=== PATIENT | male | born 1980 | race Caucasian/White ===

== ENCOUNTER 2020-03-26 08:24 | Emergency (ER) | payer SELFPAY ==
[2020-03-26 08:50] VITALS: BP 125/80; PULSE 71
--- NOTE | 2020-03-26 10:02 | CR ---
Chest: 2 views of the chest were obtained. Comparison: No prior chest imaging is available. Heart size and mediastinum are normal. Lungs are clear with no acute parenchymal change. Bony structures are unremarkable. Impression: 1. Nothing acute is seen on 2 view chest x-ray. Diagnostic code #1 This report was dictated in MDT
--- NOTE | 2020-03-26 10:22 | EDM.PDOC ---
ED HPI GENERAL MEDICAL PROBLEM - General Chief Complaint: ENT Problem Stated Complaint: SEED STUCK IN THROAT Time Seen by Provider: 03/26/20 08:49 Source of Information: Reports: Patient History Limitations: Reports: No Limitations - History of Present Illness INITIAL COMMENTS - FREE TEXT/NARRATIVE: This is a 39-year-old male with no past medical history presenting with throat d iscomfort, chronic cough and shortness of breath and chest pain, and bilateral ear discomfort. Patient states that he was eating some seeds about a week ago when he thinks that he got one stuck in his throat. He complains of a persistent foreign body sensation in his esophagus. He has been able to eat and drink without any difficulty for the past few days. Denies any fever, nausea, vomiting. Also reports a 2 to 3-month history of substernal chest discomfort, described as "burning". Reports intermittent coughing and some shortness of breath. There does not seem to be any exertional component to the symptoms. He did take some omeprazole which did not seem to help. Symptoms have not been acutely worse over the past 3 days. Denies any leg swelling, history of VTE, hemoptysis, recent surgery or immobilization or long travel, history of cancer. Denies any chest discomfort or shortness of breath this moment. Also reports a 1 day history of bilateral ear fullness without drainage or pain. Throat Pain Score (Numeric/FACES): 4 - Related Data Allergies Allergy/AdvReac Type Severity Reaction Status Date / Time No Known Allergies Allergy Verified 03/26/20 08:50 Home Meds: Home Meds . [No Known Home Meds] 03/26/20 [History] Past Medical History - Past Health History Medical/Surgical History: Denies Medical/Surgical History Social & Family History - Family History Family Medical History: Noncontributory - Tobacco Use Smoking Status *Q: Never Smoker - Caffeine Use Caffeine Use: Reports: Soda - Alcohol Use Days Per Week of Alcohol Use: 4 Number of Drinks Per Day: 3 Total Drinks Per Week: 12 - Recreational Drug Use Recreational Drug Use: No ED ROS ENT - Review of Systems Review Of Systems: See Below Constitutional: Denies: Fever, Chills HEENT: Reports: Throat Pain. Denies: Ear Discharge, Ear Pain, Throat Swelling Respiratory: Reports: Shortness of Breath, Cough. Denies: Pleuritic Chest Pain, Sputum, Hemoptysis Cardiovascular: Reports: Chest Pain. Denies: Dyspnea on Exertion, Edema, Syncope Endocrine: Denies: Fatigue GI/Abdominal: Denies: Abdominal Pain, Bloody Stool, Diarrhea, Nausea, Vomiting : Denies: Discharge, Dysuria, Urgency Musculoskeletal: Denies: Neck Pain Skin: Denies: Rash Neurological: Denies: Headache Psychiatric: Reports: No Symptoms Hematologic/Lymphatic: Reports: No Symptoms Immunologic: Reports: No Symptoms ED EXAM, ENT - Physical Exam Exam: See Below Text/Narrative:: Vital signs reviewed. Nursing notes reviewed. Constitutional: Awake, alert, non-distressed. Head: Normocephalic, atraumatic. Eyes: EOMI, conjunctiva normal, no discharge, no scleral icterus. Ears, Nose, Throat: External ears and nose normal, moist oral mucosa. Oropharynx unremarkable. TMs clear bilaterally. Neck: Supple, full range of motion. Cardiovascular: 2+ radial pulse, capillary refill less than 2 seconds. RRR, no M/R/G Pulmonary: normal work of breathing, no accessory muscle use. CTA BL Abdomen/GI: Soft, nontender, nondistended, no guarding or rigidity, no masses. Musculoskeletal: No deformities. Integumentary: Appropriate color for ethnicity, warm, dry, no pallor or jaundice, no rash. Neurologic: Alert, answering questions appropriately, normal speech, no facial droop, moving all extremities well. Psychiatric: Appropriate mood and affect, normal thought process. EKG INTERPRETATION EKG Interpretation Comments: 12-Lead ECG Interpretation Acquired: 9:00 AM Rhythm: Sinus rhythm Rate: 71 bpm [place]: Normal Intervals: Normal Ectopy: None Ischemic Changes: None apparent RV Strain: No obvious RV strain pattern. ST Segments/T-Waves: No notable changes Interpretation: Unremarkable Course - Vital Signs Text/Narrative:: Patient hemodynamically stable, afebrile, well-appearing, looks nontoxic. Differential diagnosis includes but is not limited to: Esophageal foreign body, throat irritation, esophageal rupture/perforation, PE, acute coronary syndrome, unstable angina, GERD, pneumonia, atypical chest pain, congestive heart failure, otitis media, otitis externa, nonspecific otalgia, etc. I offered viscous lidocaine for his throat discomfort, which the patient refused. Given the patient has been eating and drinking without difficulty for days, an esophageal foreign body is very unlikely. His neck examination is supple and he is handling secretions without difficulty. No evidence of free air on chest x-rays to suggest an esophageal perforation, no fever, patient looks nontoxic. No historical risk factors for pulmonary embolism and chronicity of stuttering chest discomfort and shortness of breath makes this unlikely. Patient is not hypoxic or tachycardic and has no leg swelling. Chest x-rays are normal. Twelve-lead EKG looks nonischemic. No evidence of congestive heart failure on examination such as rales or lower extremity edema. Labs reassuring, negative troponin. No risk factors for pulmonary embolism, no clinical evidence of congestive heart failure. Lungs are clear to auscultation. Not hypoxic, afebrile, well-appearing. Plan: Patient is stable to discharge home with outpatient primary care follow- up. I offered to prescribe viscous lidocaine for his throat discomfort, which the patient declined. Plan for [id number] treatment with sore throat lozenges, salt water gargles, Tylenol and ibuprofen for any chest pain. Strict emergency department return precautions were provided, patient indicated understanding. All questions were answered prior to departure. Discharged in good condition. Last Recorded V/S: Last Vital Signs Temp 36.4 C 03/26/20 08:47 Pulse 71 03/26/20 08:47 Resp 18 03/26/20 08:47 BP 125/80 03/26/20 08:47 Pulse Ox 96 03/26/20 08:47 - Orders/Labs/Meds Orders: Active Orders 24 hr Category Date Time Status EKG 12 Lead [EKG Documentation Completion] [RC] ROUTINE Care 03/26/20 09:20 Active Labs: Laboratory Tests 03/26/20 03/26/20 Range/Units 10:22 10:22 WBC 5.34 (4.0-11.0) K/uL RBC 4.41 L (4.50-5.90) M/uL Hgb 13.9 (13.0-17.0) g/dL Hct 39.8 (38.0-50.0) % MCV 90.2 (80.0-98.0) fL MCH 31.5 (27.0-32.0) pg MCHC 34.9 (31.0-37.0) g/dL RDW Std Deviation 43.8 (28.0-62.0) fl RDW Coeff of [place]cel[place] 13 (11.0-15.0) % Plt Count 225 (150-400) K/uL MPV 9.50 (7.40-12.00) fL Neut % (Auto) 61.0 (48.0-80.0) % Lymph % (Auto) 29.8 (16.0-40.0) % [place] % (Auto) 6.7 (0.0-15.0) % Eos % (Auto) 2.1 (0.0-7.0) % Baso % (Auto) 0.4 (0.0-1.5) % Neut # (Auto) 3.3 (1.4-5.7) K/uL Lymph # (Auto) 1.6 (0.6-2.4) K/uL [place] # (Auto) 0.4 (0.0-0.8) K/uL Eos # (Auto) 0.1 (0.0-0.7) K/uL Baso # (Auto) 0.0 (0.0-0.1) K/uL Nucleated RBC % 0.0 /100WBC Nucleated RBCs # 0 K/uL Sodium 140 (136-148) mmol/L Potassium 4.1 (3.5-5.1) mmol/L Chloride 105 (98-107) mmol/L Carbon Dioxide 25.5 (21.0-32.0) mmol/L BUN 12 (7.0-18.0) mg/dL Creatinine 0.8 (0.8-1.3) mg/dL Est Cr Clr Drug Dosing 144.14 mL/min Estimated GFR (MDRD) > 60.0 ml/min Glucose 105 (74-106) mg/dL Calcium 8.6 (8.5-10.1) mg/dL Troponin I < 0.050 (0.000-0.056) ng/mL Departure - Departure Time of Disposition: 10:54 Disposition: Home, Self-Care 01 Condition: Good Clinical Impression: Atypical chest pain, Chronic cough, Throat discomfort Dyspnea Qualifiers: Dyspnea type: unspecified Qualified Code(s): R06.00 - Dyspnea, unspecified - Discharge Information *PRESCRIPTION DRUG MONITORING PROGRAM REVIEWED*: Not Applicable *COPY OF PRESCRIPTION DRUG MONITORING REPORT IN PATIENT JORDAN: Not Applicable Instructions: Nonspecific Chest Pain, Adult, [id number], Cough, Adult Referrals: Myla Jane DO [Primary Care Provider] - 1 Week (For follow-up of symptoms.) Forms: ED Department Discharge Additional Instructions: Thank you for choosing the [facility] emergency department in [place] for your medical needs today. It was a pleasure caring for you. You were seen in the emergency department for throat discomfort, chest pain, shortness of breath, cough, and ear fullness. Your x-rays, blood work, and EKG all look reassuring. For your throat discomfort, I recommend sore throat lozenges and salt water gargles. As long as you are able to eat and drink, this does not seem dangerous at the moment. You should follow-up with your primary doctor for further evaluation of your chronic chest pain and shortness of breath and cough. Your ears look normal at the moment. Return to the emergency department immediately if things worsen. You can take [id number] Tylenol Motrin for any pain. Please return the emergency department immediately if your symptoms worsen or if you feel worse. The following information is given to patients seen in the emergency department who are being discharged. This information is to outline your options for follow-up care. We provide all patients seen in our emergency department with a follow-up referral. The need for follow-up, as well as the timing and circumstances, are variable depending upon the specifics of your emergency department visit. If you don't have a primary care physician on staff, we will provide you with a referral. We always advise you to contact your personal physician following an emergency department visit to inform them of the circumstance of the visit and for follow-up with them and/or the need for any referrals to a consulting specialist. The emergency department will also refer you to a specialist when appropriate. This referral assures that you have the opportunity for follow-up care with a specialist. All of these measure are taken in an effort to provide you with optimal care, which includes your follow-up. Under all circumstances we always encourage you to contact your private physician who remains a resource for coordinating your care. When calling for follow-up care, please make the office aware that this follow-up is from your recent emergency room visit. If for any reason you are refused follow-up, please contact the [facility] Emergency Department at and asked to speak to the emergency department charge nurse. If you do not have a primary care physician that is caring for you, you can contact these clinics below to set up an appointment to establish care: [facility] - Primary Care [address] [place] [id number] [facility] [address] [place] [id number] Sepsis Event Note (ED) - Evaluation Sepsis Screening Result: No Definite Risk - Focused Exam Vital Signs: Vital Signs Temp Pulse Resp BP Pulse Ox 03/26/20 08:47 36.4 C 71 18 125/80 96 - My Orders Last 24 Hours: My Active Orders 03/26/20 09:20 EKG 12 Lead [EKG Documentation Completion] [RC] ROUTINE - Assessment/Plan Last 24 Hours: My Active Orders 03/26/20 09:20 EKG 12 Lead [EKG Documentation Completion] [RC] ROUTINE
[2020-03-26 10:53] LABS: BLOOD UREA NITROGEN,BUN 12 mg/dL (7.0-18.0); CARBON DIOXIDE,CO2 25.5 mmol/L (21.0-32.0); CHLORIDE,CL 105 mmol/L (98-107); GLUCOSE RANDOM 105 mg/dL (74-106); POTASSIUM,K 4.1 mmol/L (3.5-5.1); SODIUM,NA 140 mmol/L (136-148)
== END 2020-03-26 11:21 | disposition home or self-care (01) ==
LOC: MW.ED 08:24
DX: R07.89 Other chest pain (principal); R07.0 Pain in throat; R06.02 Shortness of breath; R05 Cough
CPT/HCPCS: 36415; 71046; 71046-26; 80048; 84484; 85025; 93005; 99285-25